=== PATIENT | female | born 1955 | race Caucasian/White ===

== ENCOUNTER → 2021-03-31 09:40 | Outpatient (BNVA) | payer OTHER, MEDICAID, SELFPAY | PROVIDERS: PCP Student in an Organized Health Care Education/Training Program; Visit Provider Internal Medicine | DX: R76.8 Other specified abnormal immunological findings in serum (principal); R21 Rash and other nonspecific skin eruption; R53.83 Other fatigue; M25.50 Pain in unspecified joint; Z11.59 Encounter for screening for other viral diseases; Z11.1 Encounter for screening for respiratory tuberculosis | CPT/HCPCS: 36415; 80053; 81003; 82306; 82533; 82607; 82728; 83540; 85025; 85651; 86140; 86704; 86803; 87340; 99204 ==